=== PATIENT | female | born 1945 | race Caucasian/White ===

== ENCOUNTER 2019-10-23 06:44 | Observation (INO) ==
--- NOTE | 2019-10-21 14:58 | Anesthesiology Consultation ---
Date of Service October 21, 2019 Assessment & Plan (1) Encounter for pre-operative examination: Chart Review Chart Review: data entry manager initiated -Will leave to anesthesia discretion AM of procedure if repeat CXR or PT/INR needed DOS Per 10/21/19 nursing assessment, pt resides in [facility]. No other travel. No known Covid positive contacts. No current Covid related symptoms. No mention of Covid testing noted. Pt considered relatively low risk. Can proceed as schedule and be reassessed AM of surgery by anesthesia History Surgery Operation Date: 10/23/19 08:00 Proposed Procedures p AV Node Ablation w/Upgrade to Biventricular Pacemaker w/Alicias - Shanon Cardoza, Height/Weight Height: 5 ft 4.5 in Weight: 131.995 kg Allergies Allergy/AdvReac Type Severity Reaction Status Date / Time amoxicillin Allergy Hives Verified 10/21/19 13:31 lisinopril Allergy Tachycardia Verified 10/21/19 13:31 Medications Home Medications Medication Instructions Recorded Confirmed Last Taken allopurinol 100 mg PO PM 10/21/19 10/21/19 Unknown allopurinol 300 mg PO PM 10/21/19 10/21/19 Unknown atorvastatin 40 mg PO HS 10/21/19 10/21/19 Unknown cholecalciferol (vitamin D3) 50 mcg PO BID 10/21/19 10/21/19 Unknown [Vitamin D3] digoxin 125 mcg PO Q OTHER DAY 10/21/19 10/21/19 Unknown diltiazem HCl 480 mg PO QAM 10/21/19 10/21/19 Unknown folic acid 0.8 mg PO QAM 10/21/19 10/21/19 Unknown furosemide 80 mg PO QAM 10/21/19 10/21/19 Unknown metoprolol succinate [Toprol XL] 200 mg PO BID 10/21/19 10/21/19 Unknown nitroglycerin 0.4 mg SUBLINGUAL DIRECTED PRN 10/21/19 10/21/19 Unknown omeprazole 40 mg PO QAM 10/21/19 10/21/19 Unknown polyethylene glycol 3350 [Miralax] 17 g PO DAILY PRN 10/21/19 10/21/19 Unknown spironolactone 12.5 mg PO QAM 10/21/19 10/21/19 Unknown warfarin 2.5 mg PO WK 10/21/19 10/21/19 Unknown warfarin 5 mg PO PM 10/21/19 10/21/19 Unknown Past Medical History Medical History (Updated 10/21/19 @ 14:48 by Felicity Dominguez PA-C) Atrial fibrillation DX 2011> PT UNSURE TOTAL # OF CARDIOVERSIONS. Cardiac murmur 2019 ECHO shows at least moderate Chronic kidney disease STAGE III, DOESN'T FOLLOW WITH ANYONE Congestive heart failure JUST DC'ED FROM [facility] OCTOBER 09 FOR THIS AND SOB GERD (gastroesophageal reflux disease) Gout Hx of lipoma REMOVED FROM UNDER LEFT ARM Hyperlipidemia Hypertension On home oxygen therapy 2LPM AT Pacemaker [employer]> LAST CHECKED 1 MONTH AGO AT [facility] Peptic ulcer disease HX Past Family History Family History Grandmother (Maternal) Colon cancer Father Diabetes Past Surgical History Surgical History History of appendectomy History of breast biopsy RIGHT History of cardiac cath SEPTEMBER 2011> DUE TO AFIB ISSUES> THEN DOUBLE CABG> NO STENTS History of cholecystectomy History of colonoscopy History of esophagogastroduodenoscopy (EGD) History of hysterectomy History of laparoscopy History of tooth extraction Hx of surgical procedure RIGHT LEG DUE TO BREAK KID S/P CABG x 2 DOUBLE BYPASS> SEPTEMBER 2011> [place] > DUE TO AFIB COMPLICATIONS Social History Smoking Status: Former smoker Do You Dip or Chew Tobacco: No Smoking End Date: 2011 Hx Alcohol Use: Yes alcohol intake frequency: holidays/special occasions only Hx Substance Use: No substance use type: does not use Testing Laboratory Results 10/17/19= WBC: 7.47 H/H: 11.4/34.7 PLATELETS: 225 SODIUM: 140 POTASSIUM: 4.3 CHLORIDE: 96 CO2: 34 BUN: 29 CREATININE: 1.7 GLUCOSE: 153 GFR: 28.2 PT: 25.1 INR: 2.25 Electrocardiogram Date: 10/13/19 Findings: + AFIB @ (61) Inferior infarct (cited on or before September 10, 2019). Anterior infarct, age undetermined. Marked ST abnormality, possible lateral subendocardial injury. Compared to EKG from September 11, 2019- no significant change Echocardiogram Date: 09/11/19 EF: 46% LV Function: Mildly reduced Other Findings: + LVH (mild/concentric) Severe LAE. RA enlarged. Mild MR/TR/NV. Moderate (average Vmax= 3.45m/s; average peak/mean gradient= 49/30mmHg; dimensionless index is 0.25. Gradients are likely underestimated with low EF- underestimating severity of ). Septal motion is abnormal- mild diffuse LV HK. LAE suggests diastolic dysfunction. Other Testing Chest CT 10/14/19= Bilateral airspace abnormalities (expiratory phase of the study and mild tracheal bronchomalacia. No endobronchial lesion or bronchial occlusion. Predominantly ground-glass infiltrates with focal areas of consolidation are noted in bilateral upper lobes, right greater than left, right middle lobe and bilateral lower lobes predominantly in perihilar distribution)are suggestive of pulmonary edema. Moderate right pleural effusion is suggestive of congestive cardiac failure. Clinical correlation to exclude superimposed atypical infection. Biatrial enlargement consistent with diastolic dysfunction. Severely calcified aortic valve suggesting aortic stenosis. Correlation with echocardiogram. Indeterminate 7-8 mm left upper lobe nodule. Consider follow-up with chest CT in 6 months. Pacer check 09/12/19= [employer] Revo MRI. Implanted 06/13/2011. Mode = VVIR. 2 episodes of VT. Fast A&V= 2. Time in AT/AF= 23.9 hr/day (99.7%). VS 93.4%; TIMBER INSPECTOR 6.6%. 0 delivered shocks.
[~2019-10-23 06:44] MED LIST: PROPOFOL IV EMULSION 10 MG/ML 100 ML VIAL IV ONE
[2019-10-23] MEDS ORDERED: LIDOCAINE HCL 1% 20 ML VIAL ONE ×2 (06:54→07:17)
[2019-10-23] MEDS ORDERED: BACITRACIN INJ 50,000 UNIT VIAL ONE (06:54)
[2019-10-23] MEDS ORDERED: BUPIVACAINE 0.25% 30 ML VIAL ONE (06:54)
[2019-10-23] MEDS ORDERED: KETAMINE HCL INJ 50 MG/ML 10 ML VIAL ONE (07:00)
[2019-10-23] MEDS ORDERED: MIDAZOLAM HCL 1 MG/ML 2ML VIAL ONE ×2 (07:00→07:01)
[2019-10-23] MEDS ORDERED: fentaNYL citrate 100 MCG/2 ML VIAL ONE ×2 (07:00→10:08)
[2019-10-23] MEDS ORDERED: GLYCOPYRROLATE 0.2 MG/ML VIAL ONE (07:00)
[2019-10-23] MEDS ORDERED: fentaNYL citrate 100 MCG/2 ML VIAL IV PRN (07:36)
[2019-10-23] MEDS ORDERED: ePHEDrine sulfate 50 MG/ML AMP IV PRN (07:36)
[2019-10-23] MEDS ORDERED: MoRPHine SULFATE 10 MG/ML CARP/VIAL IV PRN (07:36)
[2019-10-23] MEDS ORDERED: ONDANSETRON INJ 2 MG/ML 2 ML VIAL IV PRN (07:36)
[2019-10-23] MEDS ORDERED: MEPERIDINE HCL 25 MG/ML CARP/VIAL IV PRN (07:36)
[2019-10-23] MEDS ORDERED: ATROPINE SULFATE 0.1 MG/ML 10ML SYR IV PRN (07:36)
--- NOTE | 2019-10-23 07:48 | History & Physical Report ---
Date of Service October 23, 2019 Assessment & Plan (1) Permanent atrial fibrillation with rapid ventricular response: (2) NICM (nonischemic cardiomyopathy): History of Present Illness Chief Complaint: +fatigue and SOB Primary Care Provider: Silvana Hussein pt presents for elective LV insertion and AVN ablation Allergies Allergy/AdvReac Type Severity Reaction Status Date / Time amoxicillin Allergy Hives Verified 10/23/19 07:08 lisinopril Allergy Tachycardia Verified 10/23/19 07:08 Home Medications Home Medications Medication Instructions Recorded Confirmed Type allopurinol 100 mg PO PM 10/21/19 10/23/19 History allopurinol 300 mg PO PM 10/21/19 10/23/19 History atorvastatin 40 mg PO HS 10/21/19 10/23/19 History cholecalciferol (vitamin D3) 50 mcg PO BID 10/21/19 10/23/19 History [Vitamin D3] digoxin 125 mcg PO Q OTHER DAY 10/21/19 10/23/19 History diltiazem HCl 480 mg PO QAM 10/21/19 10/23/19 History folic acid 0.8 mg PO QAM 10/21/19 10/23/19 History furosemide 80 mg PO QAM 10/21/19 10/23/19 History metoprolol succinate [Toprol XL] 200 mg PO BID 10/21/19 10/23/19 History nitroglycerin 0.4 mg SUBLINGUAL DIRECTED PRN 10/21/19 10/23/19 History omeprazole 40 mg PO QAM 10/21/19 10/23/19 History polyethylene glycol 3350 [Miralax] 17 g PO DAILY PRN 10/21/19 10/23/19 History spironolactone 12.5 mg PO QAM 10/21/19 10/23/19 History warfarin 2.5 mg PO WK 10/21/19 10/23/19 History warfarin 5 mg PO PM 10/21/19 10/23/19 History Past Med/Surg History Medical History Atrial fibrillation DX 2011> PT UNSURE TOTAL # OF CARDIOVERSIONS. Cardiac murmur 2019 ECHO shows at least moderate Chronic kidney disease STAGE III, DOESN'T FOLLOW WITH ANYONE Congestive heart failure JUST DC'ED FROM [facility] OCTOBER 09 FOR THIS AND SOB GERD (gastroesophageal reflux disease) Gout Hx of lipoma REMOVED FROM UNDER LEFT ARM Hyperlipidemia Hypertension On home oxygen therapy 2LPM AT Pacemaker [employer]> LAST CHECKED 1 MONTH AGO AT [facility] Peptic ulcer disease HX Surgical History History of appendectomy History of breast biopsy RIGHT History of cardiac cath SEPTEMBER 2011> DUE TO AFIB ISSUES> THEN DOUBLE CABG> NO STENTS History of cholecystectomy History of colonoscopy History of esophagogastroduodenoscopy (EGD) History of hysterectomy History of laparoscopy History of tooth extraction Hx of surgical procedure RIGHT LEG DUE TO BREAK KID S/P CABG x 2 DOUBLE BYPASS> SEPTEMBER 2011> [facility] > DUE TO AFIB COMPLICATIONS Family History Grandmother (Maternal) Colon cancer Father Diabetes Social History Preferred Language: Moldovan Communication Ability: Effective Dress Cap Maker Required: No Beliefs That Will Affect Care: None Current Living Situation: Alone Other Information That Helps Us Care for You: No Feels Safe at Home: Yes Safety Concerns: Feels Safe At This Time Smoking Status: Former smoker Do You Dip or Chew Tobacco: No ; Smoking End Date: 2011 ; Second Hand Exposure: Yes ; Tobacco Cessation Education Requested by Patient: No Hx Alcohol Use: Yes Hx Substance Use: No Review of Systems All systems reviewed & are unremarkable except as noted in HPI & below Physical Exam Physical Exam: aaox3, NAD NC/AT, EOMI Supple No JVD Nrl S1/S2, No murmur CTA b/l no w/r/r soft nt/nd no LE edema b/l skin intact no focal deficits Results & Data Vital Signs (Past 12 Hours) Vital Signs Temp Pulse Resp BP Pulse Ox 10/23/19 07:12 36.6 C 79 16 146/82 H 94
[2019-10-23] MEDS ORDERED: CEFAZOLIN 250 MG/ML 1 GM VIAL ONE (08:03)
[2019-10-23] MEDS ORDERED: ACETAMINOPHEN 325 MG TAB PO PRN (11:59)
[2019-10-23] MEDS ORDERED: OXYCODONE/ACETAMINOPHEN 5mg/325mg TAB PO PRN (11:59)
--- NOTE | 2019-10-23 12:00 | Anesthesiology Progress Note ---
Date of Service October 23, 2019 Anesthesia Post Procedure Vital Signs Vital Signs: Temp Pulse Resp BP Pulse Ox 10/23/19 07:12 36.6 C 79 16 146/82 H 94 Transfer of Care Handoff Completed per policy Notes Mental Status: alert / awake / arousable and participated in evaluation Nausea / Vomiting: adequately controlled Pain: adequately controlled Airway Patency, RR, SpO2: stable & adequate BP & HR: stable & adequate Hydration State: stable & adequate Anesthetic Complications: no major complications apparent and Pt Satisfied with anesthetic care
[2019-10-23] MEDS ORDERED: NITROGLYCERIN SL 0.4 MG/TAB TAB SL PRN (12:01)
[2019-10-23] MEDS ORDERED: POLYETHYLENE (MIRALAX) 17 GM PACK PO PRN (12:01)
--- NOTE | 2019-10-23 12:02 | Operative Report ---
Post Operative Report Pre & Post Diagnosis permanent AF with RVR and NICM Operation Date: 10/23/19 08:00 <No data on this case meets the specified criteria> I identified the patient and participated in the time-out.: Yes Procedure Operation Date: 10/23/19 08:00 Actual Procedures p Upgrade of any system to BIV - Shanon Cardoza DO s AV Node Ablation - Shanon Cardoza DO Surgeon Shanon Cardoza, Draw Press Operator none Estimated Blood Loss 30 Findings Consistent with Post-Op Diagnosis Specimens none Description of Procedure see official report I attest to the content of the Intraoperative Record and any orders documented therein. Any exceptions are noted below.
[2019-10-23] MEDS ORDERED: WARFARIN SOD 5 MG TAB PO SCH (16:00)
--- NOTE | 2019-10-23 16:05 | Discharge Summary ---
Date of Service October 24, 2019 Admission HPI Per Admitting Provider pt presents for elective LV insertion and AVN ablation Admission Exam Per Admitting Provider aaox3, NAD NC/AT, EOMI Supple No JVD irregular/irregular tachycardia S1/S2, No murmur CTA b/l no w/r/r soft nt/nd no LE edema b/l skin intact no focal deficits Principal Diagnosis Permanent AF with RVR and NICM s/p upgrade to BiV ppm and AVN ablation Discharge Exam aaox3, NAD NC/AT, EOMI Supple No JVD Nrl S1/S2, No murmur CTA b/l no w/r/r soft nt/nd no LE edema b/l skin intact no focal deficits left pectoral incision intact, no hematoma mild ecchymosis Discharge Data Allergies Allergy/AdvReac Type Severity Reaction Status Date / Time amoxicillin Allergy Hives Verified 10/23/19 07:08 lisinopril Allergy Tachycardia Verified 10/23/19 07:08 Procedures Performed Operation Date: 10/23/19 08:00 Actual Procedures p Upgrade of any system to BIV - Shanon Cardoza DO s AV Node Ablation - Shanon Cardoza DO Ordered Studies CXR: No PTX leads in position ECG: BiV his bundle paced Pacemaker Interrogation: Normal function and lead testing 10/23/19 06:45 EP Lab Images for PACS ONCE Hospital Course (1) NICM (nonischemic cardiomyopathy): (2) Permanent atrial fibrillation with rapid ventricular response: Total Time Total Time Spent Total Time Spent (In Minutes): 40 Total Time Includes: Examination of the Patient, Discharge Planning, Medication Reconciliation and Other Discharge Plan Discharge Items Patient Disposition: Home - Self-Care Reason For Visit: BIV UPGRADE Discharge Diagnosis: permanent AF with RVR, NICM s/p Upgrade to BiV ppm and AVN ablation Condition on Discharge: Good Activity: As commented below Activity Comment: do not lift the left elbow over the left shoulder for 1 month Lifting: No more than 10 pounds Lifting Comment: do not lift more than 10 pounds with the left arm for 2 weeks Bathing: Keep incision dry Bathing Comment: keep dressing on and dry until wound check next week Non-emergency contact: Auditor Call non-emergency contact if: you have any medication questions Follow-up/Referrals: Silvana Hussein PA-C [Primary Care Provider] - Diet: Heart Healthy Addtl Attending Provider Instructions: Device and wound check next week in [place] [facility] Look at your device area daily for the next month if you notice swelling call Dr. Cardoza's office immediately Pending Studies at Discharge: No Stand-Alone Forms: My [facility], Smoking Cessation Medications and DC Order Prescriptions: New metoprolol succinate 25 mg Tablet Extended Release 24 Hr 25 mg PO QAM 30 Days Qty: 30 RF: 0 Continued atorvastatin 40 mg Tablet 40 mg PO HS RF: 0 polyethylene glycol 3350 [Miralax] 17 gram Powder In Packet 17 g PO DAILY PRN (Reason: Constipation) RF: 0 warfarin 2.5 mg Tablet 2.5 mg PO WK RF: 0 allopurinol 100 mg Tablet 100 mg PO PM RF: 0 spironolactone 25 mg Tablet 12.5 mg PO QAM RF: 0 furosemide 80 mg Tablet 80 mg PO QAM RF: 0 warfarin 5 mg Tablet 5 mg PO PM RF: 0 nitroglycerin 0.4 mg Tablet, Sublingual 0.4 mg sublingual DIRECTED PRN (Reason: Chest Pain) RF: 0 allopurinol 300 mg Tablet 300 mg PO PM RF: 0 folic acid 800 mcg Tablet 0.8 mg PO QAM RF: 0 omeprazole 20 mg Tablet,Delayed Release (Dr/Ec) 40 mg PO QAM RF: 0 cholecalciferol (vitamin D3) [Vitamin D3] 50 mcg (2,000 unit) Tablet 50 mcg PO BID RF: 0 Discontinued metoprolol succinate [Toprol XL] 200 mg Tablet Extended Release 24 Hr 200 mg PO BID RF: 0 diltiazem HCl 240 mg Capsule,Extended Release 24 Hr 480 mg PO QAM RF: 0 digoxin 125 mcg (0.125 mg) Tablet 125 mcg PO Q OTHER DAY RF: 0 Discharge Orders: Discharge Order (Routine); Ordered 10/24/19 Ordered By: Shanon Cardoza Admission Data Admit Date/Time: 10/23/19 11:07 Attending Provider: Shanon Cardoza Admit Provider: Shanon Cardoza Primary Care Provider: Silvana Hussein
[2019-10-23] MEDS: CHOLECALCIFEROL 1,000 UNITS 25 MCG TAB PO SCH (19:42)
[2019-10-23] MEDS ORDERED: allopurinoL 100 MG TAB PO SCH (21:00)
[2019-10-23] MEDS ORDERED: ATORVASTATIN 40 MG TAB PO SCH (21:00)
[2019-10-23] MEDS ORDERED: allopurinoL 300 MG TAB PO SCH (21:00)
[2019-10-24] MEDS: CHOLECALCIFEROL 1,000 UNITS 25 MCG TAB PO SCH (08:21)
[2019-10-24] MEDS ORDERED: METOPROLOL SUCC 25MG EXT REL TAB PO SCH (09:00)
[2019-10-24] MEDS ORDERED: SPIRONOLACTONE 12.5 MG TAB PO SCH (09:00)
[2019-10-24] MEDS ORDERED: FUROSEMIDE 80 MG TAB PO SCH (09:00)
[2019-10-24] MEDS ORDERED: FOLIC ACID 400 MCG TAB PO SCH (09:00)
[2019-10-24] MEDS ORDERED: PANTOprazole 40 MG TAB PO SCH (09:00)
--- NOTE | 2019-10-24 09:31 | XRay Report ---
XR chest 2V PA/lateral HISTORY: 73 years-old Female s/p biv ppm status post placement of a left subclavian pacer COMPARISON: None TECHNIQUE: PA and lateral views of the chest FINDINGS: Lateral view is limited secondary to left upper extremity positioning. 3-lead left subclavian pacer h as been placed with leads overlying the expected locations of the atria and right ventricle. The lead s appear intact. Prior median sternotomy with probable CABG. Cardiomegaly. Calcific plaque of the tho racic aortic arch. Medial lung apices are partially obscured by the patient's chin. No pneumothorax, pleural effusion or airspace consolidation or overt pulmonary edema. A surgical clip projects over th e left breast. Eventration of the right hemidiaphragm. Degenerative changes of the shoulders and spin e. IMPRESSION: Status post placement of a left subclavian pacer. No postprocedural pneumothorax. ACT 112: Negative or not required by law. The above report was generated using voice recognition software. It may contain grammatical, syntax o r spelling errors. Electronically signed by: Nima Martines M.D. 10/24/2019 9:30 AM
--- NOTE | 2019-10-24 17:02 | Electrocardiogram Report ---
Test Reason : Blood Pressure : / mmHG Vent. Rate : 080 BPM Atrial Rate : 081 BPM P-R Int : 000 ms QRS Dur : 152 ms QT Int : 442 ms P-R-T Axes : 000 012 218 degrees QTc Int : 509 ms Ventricular-paced rhythm Abnormal ECG No previous ECGs available Confirmed by Skip Jackson ([id number]) on 10/24/2019 5:01:57 PM Referred By: Shanon Cardoza Confirmed By:Ramez Jackson
--- NOTE | 2019-10-28 12:00 | Operative Report (OR) ---
DATE OF OPERATION: 10/23/2019 PREOPERATIVE DIAGNOSES: Permanent atrial fibrillation with rapid ventricular response despite high dose atrioventricular tom blockers and nonischemic cardiomyopathy. POSTOPERATIVE DIAGNOSES: Permanent atrial fibrillation with rapid ventricular response despite high dose atrioventricular tom blockers and nonischemic cardiomyopathy plus complete heart block. PROCEDURE: Upgrade from a dual chamber permanent rate responsive permanent pacemaker to a biventricular rate responsive permanent pacemaker (insertion of a His bundle lead), plus AV tom ablation under fluoroscopic guidance along with peripheral venogram, intracardiac electrogram His bundle mapping. SURGEON: Shanon Cardoza DO. ASSISTANTS: None. ANESTHESIA: Monitored anesthetic care given via Anesthesiology. Please defer to their notes for complete details. Start time was 7:58 and end time 11:38. Total of 4 mg of Versed, 200 mcg of fentanyl, 54 mg of ketamine and 165 mg of propofol, also I used ultrasound guidance for venous access of the right femoral groin. BLOOD LOSS: 30 mL. ADDITIONAL MEDICINES: 3 grams of Ancef and 20 mL of contrast. INTRAVENOUS FLUIDS: 500 mL of LR. CONDITION: Stable. COMPLICATIONS: None. URINE OUTPUT: Not applicable. SPECIMENS: None. FINDINGS: See below. DRAINS: None. INDICATIONS: This is a 73-year-old female with past medical history for permanent atrial fibrillation with rapid ventricular response despite extremely high dose AV tom blockers CHADS2-VASc score of 6, coronary artery disease, history of CABG x2, nonischemic cardiomyopathy, where her ejection fraction is now reduced to 45% in 09/2019, chronic heart failure secondary to reduced ejection fraction and diastolic dysfunction. [place] Heart Association class III, moderate aortic stenosis, hypertension, hyperlipidemia, chronic kidney disease, gout, history of right breast cancer, degenerative disk disease and bilateral carotid artery stenosis. Due to the AFib with rapid response and an nonischemic cardiomyopathy, she was recommended an upgrade to a biventricular pacemaker followed by an AV tom ablation. CONSENT: Consent was obtained prior to the patient going into electrophysiology lab. The patient was informed of the risks, benefits and alternatives of procedure. Risks include but not limited to sudden cardiac , cardiac arrhythmias, cerebrovascular accident, myocardial infarction, injury to the blood vessels, chamber of the heart, lung, bleeding, and infection. The patient understood these risks and agreed to the procedure as planned. Informed consent was obtained. DESCRIPTION OF THE PROCEDURE: The patient was brought into the electrophysiology lab in a fasting state. She was connected to continuous cardiac monitoring. A timeout was performed to ensure patient identity and procedure correctly. The patient was prepped and draped over the left infraclavicular space in normal surgical standard fashion. Monitored anesthetic care was given throughout the procedure for patient's comfort level via anesthesiology. Please refer to their notes for complete details. [place] precautions were maintained throughout the procedure. She received prophylactic antibiotics prior to incision. 10 mL of 1% lidocaine, bupivacaine mixture were given over the prior surgical incision. Incision was made with prior surgical incision. Blunt dissection was performed down to the pulse generator, which was removed from the pocket. Then a peripheral venogram was performed to identify the axillary vein. Venous axillary access was obtained through a needlestick without any problems. The guidewire was inserted without any resistance. Then a 9.5-[place] sheath was inserted over the retained guidewire without any resistance. The guidewire and dilator removed and then I initially looked for place a coronary sinus lead, so the coronary sinus was cannulated using a Athenix Decapolar diagnostic coronary sinus catheter and the MPX sheath was advanced into the coronary sinus over this catheter. We did venograms of the coronary sinus, but there really was not any posterolateral branch that was amenable to be used, so the MPX sheath was then removed and using the deflectable His C304 sheath this was advanced into the right atrium over a Glidewire. The Glidewire and dilator were removed. Then an unipolar intracardiac His bundle mapping was performed through the His lead as it was advanced through the His deflectable sheath. We had an HV of 33 milliseconds and adequate pacing, so that the His lead was screwed in at this point. There was adequate pacing and sensing thresholds. The sheath was then slit under fluoroscopic guidance and the lead was fixated to pectoralis muscle using 0 silk suture. The pacemaker pocket was disrupted inferiorly and caudally to allow for new blood flow then it was flushed with copious amounts of bacitracin saline wash and inspected for hemostasis. I did put a pursestring around the puncture site just to ensure no back bleeding. The old pacemaker leads were tested intraoperatively, see below for results. Then all the leads were attached to the new pulse generator making sure that the pins were in appropriate position, passed set screw and set screws were all tightened. Pulse generator was then placed in the antibiotic pouch followed then by being placed in the pocket and a stay stitch using 0 silk suture was used to secure the rest of pectoralis muscle. The incision was then closed in 3-layer fashion with 2-0 Vicryl interrupted suture followed by 3-0 Vicryl interrupted suture followed 4-0 Monocryl running stitch. Dermabond was applied followed then by a Sam and micropore dressing. The patient was redraped over the bilateral groins in normal surgical standard fashion. Then 1% lidocaine was given in the right femoral groin 5 mL Then using the modified Seldinger technique, venous access was obtained using ultrasound guidance. A guidewire was inserted without any resistance. Then an 8-[place] sheath was inserted over the guidewire without any resistance. Dilator and guidewire were removed. Then the 8 mm Athenix ablation catheter DF curve non-navigation was advanced into the right atrium and positioned over the His bundle right proximal to my His bundle lead, right around the ring electrode. We went on ablation at 70 [place] and within a few seconds. the patient went to complete heart block. I gave 2 more reassurance jenkins for a total of 3 radiofrequency jenkins a minute each the catheter. The ablation catheter was then removed from the body and we did a 30-minute waiting period to ensure that there was still no AV conduction. Then the sheath was removed and manual compression was used to establish hemostasis. EQUIPMENT: 1. Explanted generator is Revo DR MRI [id number], serial number [id number], implanted 06/13/2011. 2. The new pulse generator is a Medtronic Sri CRTP MRI SureScan [id number], serial number [id number]. 3. The right atrial lead is a 5086 MRI compatible 45 cm, serial number [id number], implanted 06/13/2011. 4. The right ventricular lead is a 5086 MRI-52, serial number [id number], implanted 06/13/2011. 5. The new His bundle lead is a Medtronic 3830-69 cm, serial number [id number]. 6. The antibiotic Tyrx pouch reference [id number], lot number [id number], expiration 08/21/2020. INTRAOPERATIVE TESTIN. Right atrial lead fib waves 3.1 millivolts, impedance 48 ohms, no threshold testing as patient is in fibrillation. 2. Right ventricular lead R waves 12.1 millivolts, impedance 488 ohms, threshold 0.8 volts at 0.5 milliseconds. 3. His bundle lead impedance 599 ohms, threshold 0.7 volts at 1 millisecond. FINAL MEASUREMENTS THROUGH THE DEVICE: 1. Right atrial lead fib waves 3 millivolts, impedance 494 ohms, no threshold testing as patient is in fibrillation. 2. Right ventricular lead, R-wave 18.1 millivolts, impedance 513 ohms, threshold 1 volt at 0.4 milliseconds. 3. His bundle lead impedance 551 ohms, threshold 1 volt at 1 millisecond. FINAL PARAMETERS: VVIR 80/130. Right ventricular amplitude 2 volts, pulse width 0.4 milliseconds, sensitivity is 1.2 millivolts. Left ventricular amplitude 4 volts, pulse width 1 millisecond. IMPRESSION: Successful upgrade from a dual chamber rate responsive permanent pacemaker to a biventricular rate responsive permanent pacemaker (with the LV lead over the His bundle), intracardiac electrogram mapping of the His bundle region, radiofrequency AV tom ablation, along with peripheral and coronary sinus venogram, all under fluoroscopic guidance. PLAN: Monitor patient post-procedure overnight. She is not to do any heavy lifting or squatting for 1 week. She cannot lift her left arm over the left shoulder for 1 month. She is to keep the dressing on and dry and over her left pectoral region until her wound check next week. She is to stop her diltiazem and digoxin and we will reduce her metoprolol down to 25 mg daily. She is not to lift more than 10 pounds with the left arm for 2 weeks. She will follow up in our [place] office for device and wound check in 1 week's time. I attest to the content of the Intraoperative Record and any orders documented therein. Any exception s are noted below.
--- NOTE | 2019-11-06 08:53 | Coding Query ---
A supporting diagnosis is required for the test/procedure performed on this patient in order for us to be reimbursed by the patient's insurance. Please provide a supporting diagnosis for the following test/procedure listed below next to the test name along with your signature. *If there is no additional diagnosis for this patient that would support the following test/procedure please document that below next to the test/procedure. Test(s)/Procedure(s) that require a supporting diagnosis: * 21468 INSERT PACING LEAD AND CONNECT DIAGNOSIS: NICM and Permanent atrial fibrillation s/p AVN ablation DATE OF SERVICE: 10/23/19 Provider Signature: Date: Thank you Aubrey Sarmiento [facility] Information Management Once completed, please kindly fax back to [phone] For questions please call [phone] RANDY
== END 2019-10-24 12:15 | disposition home or self-care (01) ==
LOC: EP 06:44 → 2S 06:44